=== PATIENT | male | born 1970 | race Two or more races ===

== ENCOUNTER 2016-04-08 22:55 | Emergency (ER) | payer OTHER ==
[~2016-04-08] VITALS: Ht 170.2 cm; Wt 67.6 kg
[2016-04-08] MEDS ORDERED: NKM (23:15)
[2016-04-08] MEDS ORDERED: TdaP Vaccine 0.5ml Syr IM ONE (23:45)
[2016-04-09] MEDS ORDERED: KEFLEX500 MG ORAL (00:34)
--- NOTE | 2016-04-09 00:35 | Emergency Room Report ---
History of Present Illness General Chief Complaint: Laceration Source: Patient Present Illness HPI Is a 46-year-old male who is right-hand dominant. He presents with a laceration over the right finger. Onset was acute. 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 He sustained a laceration over the PIP joint on the volar aspect. This occurred just prior to arrival. No other injury. Bleeding is controlled. Allergies: Coded Allergies: No Known Allergies (Unverified , 04/08/16) Patient History Past Medical History: see triage record, old chart reviewed Past Surgical History: none Pertinent Family History: none Social History: Denies: smoking Immunizations: other Reviewed Nursing Documentation: PMH: Agreed, PSxH: Agreed Nursing Documentation-PMH Past Medical History: No Stated History Review of Systems Eye: Denies: blurred vision, eye pain ENT: Denies: ear pain, nose congestion, throat swelling Respiratory: Denies: cough, shortness of breath Cardiovascular: Denies: chest pain, palpitations Gastrointestinal: Denies: abdominal pain, diarrhea, nausea, vomiting Musculoskeletal: Denies: back pain, joint pain Skin: Denies: rash Neurological: Denies: headache, numbness Endocrine: Denies: increased thirst, increased urine Hematologic/Lymphatic: Denies: easy bruising All Other Systems: negative except mentioned in HPI Physical Exam Vital Signs Date Time Temp Pulse Resp B/P Pulse Ox O2 Delivery O2 Flow Rate FiO2 04/08/16 23:08 97.9 58 16 127/77 100 Room Air vitals normal Sp02 EP Interpretation: reviewed, normal General Appearance: well appearing, no apparent distress, alert Head: normocephalic, atraumatic Eyes: bilateral eye EOMI, bilateral eye PERRL ENT: hearing grossly normal, normal pharynx Neck: full range of motion, supple, no meningismus Respiratory: chest non-tender, lungs clear, normal breath sounds Cardiovascular #1: regular rate, rhythm, no murmur Gastrointestinal: normal bowel sounds, non tender, no mass, no organomegaly, no bruit, non-distended Musculoskeletal: back normal, gait/station normal, normal range of motion, other - Right fifth finger: There is a 1.5 cm laceration over the PIP joint. He has normal function of the MCP and PIP joint. He cannot flex his DIP joint. Sensation is normal. Capillary refill less than 2 seconds. Neurologic: alert, oriented x3 Psychiatric: mood/affect normal Skin: warm/dry Procedures Splinting Splinting : Consent: Verbal Location: Right fifth finger Pre-Made Type: metal Pre-Proc Neuro Vasc Exam: normal Post-Proc Neuro Vasc Exam: normal Patient Tolerated: Well Complications: None Laceration/Wound Repair Laceration/Wound Repair : Consent: Verbal Wound Location: upper extremity Wound's Depth, Shape: linear Wound Length (cm): 1 Wound Explored: clean Irrigated w/ Saline (ccs): 500 Anesthesia: 1% Lidocaine Volume Anesthetic (ccs): 1 Wound Repaired With: sutures Suture Size/Type: 5:0, proline Number of Sutures: 3 Splint Applied?: Yes Type of Splint Applied: Mental Patient Tolerated: Well Complications: None Medical Decision Making Diagnostic Impression: Primary Impression: Laceration ER Course Patient presents with laceration the right fifth finger. There may be some tendon laceration because he cannot flex his DIP joint. Finger splinted. We' ll discharge home with Worker's Comp. followup. May need hand refer. Last Vital Signs Date Time Temp Pulse Resp B/P Pulse Ox O2 Delivery O2 Flow Rate FiO2 04/08/16 23:08 97.9 58 16 127/77 100 Room Air Status: improved Disposition: HOME, SELF-CARE Condition: Stable Scripts Cephalexin* (KEFLEX*) 500 Mg Capsule 500 MG ORAL TID, #21 CAP 0 Refills Prov: MINH DE LA FUENTE M.D. 04/09/16 Referrals: NOT CHOSEN IPA/,REFERRING (PCP) Patient Instructions: Laceration Care, Adult Additional Instructions: Followup with Worker's Comp. for followup within 2 days. You may need hand surgeon referral. Suture out in 10 days. Return if worse. MINH DE LA FUENTE M.D. Apr 09, 2016 00:35
[2016-04-09 00:45] VITALS: BP 126/88
[2016-04-09 00:46] VITALS: BP 127/77
== END 2016-04-09 00:46 | disposition home or self-care (01) ==
LOC: EMR 23:29
DX: S61.216A Laceration without foreign body of right little finger without damage to nail, initial encounter (principal); W26.0XXA Contact with knife, initial encounter; Y93.9 Activity, unspecified; Y92.89 Other specified places as the place of occurrence of the external cause; Y99.0 Civilian activity done for income or pay
CPT/HCPCS: 90471; 90715